=== PATIENT | male | born 1990 | race American Indian/Alaskan Native ===

== ENCOUNTER 2016-07-16 04:32 | Emergency (ER) | payer SELFPAY ==
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
[2016-07-16] MEDS ORDERED: ZOFRAN ODT PO ONE (07:36)
[2016-07-16] MEDS ORDERED: DILAUDID IM ONE (07:36)
[2016-07-16 08:37] VITALS: BP 124/70
== END 2016-07-16 08:10 | disposition home or self-care (01) ==
LOC: ED 04:32
DX: M79.605 Pain in left leg (principal); M79.1 Myalgia
CPT/HCPCS: 99282; J1170; Q0162